=== PATIENT | male | born 1980 | race African-American/Black ===

== ENCOUNTER 2018-12-08 15:14 | Emergency (ER) | payer OTHER ==
[~2018-12-08] VITALS: Ht 175.3 cm; Wt 113.4 kg
[2018-12-08] MEDS ORDERED: IBUP400 PO (16:44)
== END 2018-12-08 17:34 | disposition home or self-care (01) ==
LOC: ER 15:14
DX: S93.401A Sprain of unspecified ligament of right ankle, initial encounter (principal); S50.311A Abrasion of right elbow, initial encounter; Z23 Encounter for immunization; V23.4XXA Motorcycle driver injured in collision with car, pick-up truck or van in traffic accident, initial encounter
CPT/HCPCS: 73080; 73610; 90471; 90714; 99284-25